=== PATIENT | female | born 1955 | race African-American/Black ===

== ENCOUNTER → 2019-08-19 | Emergency (ER) | payer MEDICARE, MEDICAID ==
[~2019-08-19] VITALS: Ht 162.6 cm; Wt 57.0 kg
[2019-08-19 19:36] VITALS: BP 133/62
== END | disposition expired ==
LOC: ER 19:34
DX: I46.9 Cardiac arrest, cause unspecified (principal)
CPT/HCPCS: 92950; 99285